=== PATIENT | male | born 2000 | race Caucasian/White ===

== ENCOUNTER 2022-09-15 06:23 | Emergency (ER) | payer OTHER, SELFPAY ==
[2022-09-15] VITALS (15 sets, daily range): BP systolic 118–158; BP diastolic 64–89; PULSE 109–117; RESP 16–25; TEMP 36.8; O2SAT 96–100
--- NOTE | ~2022-09-15 | XR_ITS ---
EXAMINATION: XR chest 1V portable DATE: 09/15/2022 08:25 INDICATION: Palpitations. TECHNIQUE: A single frontal view of the chest was obtained. COMPARISON: None. FINDINGS: The chest demonstrates clear lungs without pneumonia, pleural effusion, or pneumothorax. Th e heart size is normal. IMPRESSION: 1. No acute cardiopulmonary disease. Reviewed, dictated and finalized at location A.
--- NOTE | 2022-09-15 06:27 | ECG_ITS ---
Measurements Intervals [place] Rate: 112 P: 12 OR: 157 QRS: 60 QRSD: 76 T: 21 QT: 324 QTc: 443 Interpretive Statements SINUS TACHYCARDIA EARLY PRECORDIAL R/S TRANSITION BORDERLINE T WAVE ABNORMALITY- ANTERIOR LEADS BASELINE ARTIFACT- I, AVR BORDERLINE ECG NO PREVIOUS ECG AVAILABLE FOR COMPARISON Electronically Signed On 09-15-2022 7:12:35 CDT by Devon Anderson D.O.
--- NOTE | 2022-09-15 07:23 | ED.ARRPALP ---
HPI - Arrhythmia/Palpitations General Chief Complaint: Arrhythmia/Palpitations Stated Complaint: [place]at[place] Time Seen by Provider: 09/15/22 07:22 Source: patient and family Mode of arrival: ambulatory Limitations: no limitations History of Present Illness HPI narrative: 22 years old white male drove himself to the emergency room because of palpitation waking up from sleep 2 hours prior to arrival. He denies any chest pain or shortness of breath or having similar symptoms. Patient lives alone, started new job 1 week ago, history of insomnia on Ambien. He denies fever, chills, nausea, vomiting, chest pain, shortness of breath. Related Data Allergies Allergy/AdvReac Type Severity Reaction Status Date / Time codeine Allergy Swelling Verified 09/15/22 06:29 of Lip/Tongue/Throat shellfish derived Allergy Swelling Verified 09/15/22 06:29 of Lip/Tongue/Throat Review of Systems Review of Systems: All systems reviewed & are unremarkable except as noted in HPI and below Exam Narrative: General appearance: Well-developed, well-nourished Skin: Normal color Head: Normocephalic, nontraumatic Eyes: Clear conjunctiva ENT: Oropharynx normal, ears normal, nose normal Neck: Supple, nontender Chest and respiratory: Airway patent, no respiratory distress, no accessory muscle use Heart: Tachycardia, regular rate Abdomen: Soft, nontender, no organomegaly, quiet bowel sounds Vascular: Normal peripheral pulses, normal capillary refill. Musculoskeletal: Normal range of motion, nontender back Neurologic: Alert and oriented ?3, HATCH BOSS is normal as tested, no gross motor deficit Course Vital Signs Vital signs: Vital Signs Temperature 36.8 C 09/15/22 06:29 Pulse Rate 113 H 09/15/22 06:29 Respiratory Rate 18 09/15/22 06:29 Blood Pressure 146/78 H 09/15/22 06:29 Pulse Oximetry 100 09/15/22 06:29 Oxygen Delivery Room Air 09/15/22 06:29 Temperature 36.8 C 09/15/22 06:29 Pulse Rate 115 H 09/15/22 07:45 Respiratory Rate 20 09/15/22 07:45 Blood Pressure 133/83 09/15/22 07:45 Pulse Oximetry 96 09/15/22 07:45 Oxygen Delivery Room Air 09/15/22 06:29 MDM - Arrhythmia/Palpitations MDM Narrative Medical decision making narrative: 22 years old white male came to the emergency room from home with palpitation waking him up from sleep 2 hours prior to arrival to the emergency room, lives alone, started a new job 1 week ago, on Ambien for insomnia. Physical examination was insignificant except for sinus tachycardia, Differential diagnosis include insomnia, stress, depression, hypovolemia, hypothyroidism, drug-induced. Work-up today include blood which showed WBC of 14.5, no evidence of infection, leukocytosis high likely is reactive, CMP showed insignificant abnormality, clean urine, toxicology screen is negative, chest x-ray showed no acute abnormalities, EKG on arrival showed sinus tachycardia. Patient received 1 mg of Ativan in the ED, heart rate currently running in the 110s, sinus tachycardia patient currently is asymptomatic. There is no clear reason for patient tachycardia at this time except depression/anxiety. Differential Diagnosis Differential diagnosis: Likely palpitations, anxiety and sinus tachycardia Lab Data 09/15/22 07:41 09/15/22 07:40 Labs: Lab Results 09/15/22 09/15/22 09/15/22 Range/Units 07:40 07:41 07:42 WBC 14.5 H (4.5-10.0) K/mm3 RBC 5.05 (4.6-6.20) M/mm3 Hgb 14.3 (14.0-18.0) g/dL Hct 43.5 (42.0-52.0) % MCV 86.1 (80-100) fl MCH 28.3 (26-34) pg MCHC 32.9 (32-36) g/dl RDW 13.8 (11.5-14.5) % Plt Count 437 H
[2022-09-15] MEDS: LORazepam (*CRX) 0.5 MG TABLET 1 MG PO (07:42)
[2022-09-15 07:45] LABS: Basophils Absolute Auto 0.1 K/mm3 (0.0-0.1); Basophils Percent Auto 0.8 % (0.2-1.2); Eosinophils Absolute Auto 0.1 K/mm3 (0-0.3); Hematocrit 43.5 % (42.0-52.0); Hemoglobin 14.3 g/dL (14.0-18.0); Immature Granulocyte Absolute 0.04 K/mm3 (0.00-0.031); Immature Granulocyte Percent A 0.3 % (0-0.5); Lymphocytes Absolute Auto 4.04 K/mm3 (0.9-3.2); Lymphocytes Percent Auto 27.9 % (18.3-44.2); Mean Corpuscular HGB Conc 32.9 g/dl (32-36); Mean Corpuscular Hemoglobin 28.3 pg (26-34); Mean Corpuscular Volume 86.1 fl (80-100); Mean Platelet Volume 9.4 fl (7.4-10.4); Monocytes Absolute Auto 0.9 K/mm3 (0.1-0.6); Neutrophils Absolute Auto 9.3 K/mm3 (1.3-6.7); Platelet Count Result 437 k/mm3 (150-375); Red Blood Count 5.05 M/mm3 (4.6-6.20); Red Cell Distribution Width 13.8 % (11.5-14.5); White Blood Count 14.5 K/mm3 (4.5-10.0)
[2022-09-15 07:49] LABS: Appearance Urine Clear (Clear); Bilirubin Urine Negative (Negative); Blood Urine Negative (Negative); Color Urine Yellow (Yellow); Glucose Urine UA Negative (Negative); Ketones Urine Trace mg/dL (Negative); Leukocyte Esterase Ur Negative LEU/UL (Negative); Nitrate Urine Negative (Negative); Protein Urine Negative (Negative); Specific Grav Ur 1.025 (1.001-1.035); pH Urine 6.5 (5.0-9.0)
[2022-09-15 07:55] LABS: Add Urine Microscopic? NO
[2022-09-15 07:55] LABS: Alanine Aminotransferase 64 U/L (6-50); Albumin Level 4.5 g/dL (3.5-5.1); Alkaline Phosphatase 94 U/L (38-126); Anion Gap 14 mmol/L (8-16); Aspartate Amino Transferase 42 U/L (17-59); Bilirubin,Total 0.4 mg/dL (0.2-1.3); Blood Urea Nitrogen 11 mg/dL (9-20); Calcium 8.3 mg/dL (8.4-10.2); Carbon Dioxide 25 mmol/L (22-30); Chloride 103 mmol/L (98-107); Estimated CRCL calculation 162 ml/min; Estimated Glomerular Filt Rate > 60; Glucose 124 mg/dL (65-110); Potassium 3.5 mmol/L (3.4-5.0); Sodium 142 mmol/L (137-145)
[2022-09-15 08:05] LABS: Amphetamine Screen Urine Negative (Negative); Barbiturate Screen Urine Negative (Negative); Benzodiazepines Screen Urine Negative (Negative); Cannabinoid Screen Urine Negative (Negative); Cocaine Screen Urine Negative (Negative); Methadone Screen Urine Negative (Negative); Opiate Screen Urine Negative (Negative); Phencyclidine Screen Urine Negative (Negative)
[2022-09-15 08:14] LABS: Troponin I < 0.012 ng/mL (0.000-0.034)
== END 2022-09-15 09:05 | disposition home or self-care (01) ==
PROVIDERS: Emergency Provider Emergency Medicine; PCP Family Medicine
DX: R00.0 Tachycardia, unspecified (principal); R94.31 Abnormal electrocardiogram [ECG] [EKG]; G47.00 Insomnia, unspecified
CPT/HCPCS: 36415; 71045; 80053; 80307; 81003; 84443; 84484; 85025; 93005; 99283; A9270